=== PATIENT | female | born 1995 | race Caucasian/White ===

== ENCOUNTER → 2021-04-21 | Outpatient (REF) | payer OTHER | LOC: M LAB REF 16:12 | PROVIDERS: ATTEND Surgery | DX: L90.5 Scar conditions and fibrosis of skin (principal) ==

== ENCOUNTER → 2021-08-23 | Outpatient (REF) | payer OTHER ==
[2021-08-23 11:53] LABS: APPEARANCE, URINE HAZY (CLEAR); BACTERIA, URINE AUTO NEGATIVE (NEGATIVE); BILIRUBIN, URINE AUTO NEGATIVE (NEGATIVE); BLOOD, URINE BLOOD NEGATIVE (NEGATIVE); CALCIUM OXALATE CRYSTALS SMALL; COLOR, URINE YELLOW (YELLOW); GLUCOSE, URINE (UA) AUTO NEGATIVE (NEGATIVE); KETONE, URINE AUTO TRACE mg/dL (NEGATIVE); LEUKOCYTE ESTERASE, URINE AUTO NEGATIVE (NEGATIVE); MUCUS, URINE LARGE (NEGATIVE); NITRITE, URINE AUTO NEGATIVE (NEGATIVE); PROTEIN, URINE AUTO NEGATIVE (NEGATIVE); RBC, URINE AUTO 1 /HPF (0-3); SPECIFIC GRAVITY URINE AUTO 1.024 (1.002-1.035); SQUAMOUS EPITHELIAL CELL UR AU 2 /HPF (0-6); UROBILINOGEN, URINE AUTO 0.2 mg/dL (0.0-2.0); WBC, URINE AUTO 2 /HPF (0-3)
[2021-08-23 11:54] LABS: BASO % 0.2 % (0.0-1.0); EOS % 0.5 % (0.0-3.0); HEMATOCRIT 45.1 % (36.0-47.0); LYMPH # 2.7 10^3/uL (1.5-5.0); LYMPH % 32.7 % (24.0-44.0); MEAN CORPUSCULAR HEMOGLOBIN 31.3 pg (27.0-33.0); MEAN CORPUSCULAR HGB CONC 33.3 g/dl (32.0-36.5); MEAN CORPUSCULAR VOLUME 94.2 fl (80.0-96.0); MONO # 0.4 10^3/uL (0.0-0.8); MONO % 4.5 % (2.0-8.0); NEUTROPHILS # 5.1 10^3/uL (1.5-8.5); PLATELET COUNT, AUTOMATED 205 10^3/uL (150-450); RED BLOOD COUNT 4.79 10^6/uL (4.00-5.40); WHITE BLOOD COUNT 8.3 10^3/uL (4.0-10.0)
[2021-08-23 12:15] LABS: HEMOGLOBIN A1c 4.9 %
[2021-08-23 12:28] LABS: ALBUMIN 3.5 GM/DL (3.2-5.2); ALT/SGPT 19 U/L (12-78); BILIRUBIN,TOTAL 0.9 MG/DL (0.2-1.0); BLOOD UREA NITROGEN 10 MG/DL (7-18); CALCIUM LEVEL 9.3 MG/DL (8.5-10.1); CARBON DIOXIDE LEVEL 26 MEQ/L (21-32); CHLORIDE LEVEL 108 MEQ/L (98-107); CHOLESTEROL LEVEL 213 MG/DL (<200); CHOLESTEROL RISK RATIO 4.437 (<5); CREATININE FOR GFR 0.84 MG/DL (0.55-1.30); ESTRADIOL < 19.0 PG/ML; FREE T4 1.07 NG/DL (0.76-1.46); GLOMERULAR FILTRATION RATE > 60.0 (>60); GLUCOSE, FASTING 80 MG/DL (70-100); HDL CHOLESTEROL 48 MG/DL (>40); IMMUNOGLOBULIN G 899 MG/DL (681-1648); LDH LACTATE DEHYDROGENASE 143 U/L (84-246); LDL CHOLESTEROL 135 MG/DL (<100); NON-HDL-C 165 MG/DL; NT-PRO BNP 236 PG/ML (<125); PHOSPHORUS LEVEL 4.3 MG/DL (2.5-4.9); POTASSIUM SERUM 4.2 MEQ/L (3.5-5.1); SODIUM LEVEL 140 MEQ/L (136-145); TOTAL 25(OH) VITAMIN D 25.7 NG/ML (30.0-100.0); TOTAL PROTEIN 7.2 GM/DL (6.4-8.2); TRIGLYCERIDES LEVEL 148 MG/DL (<150); URIC ACID 4.2 MG/DL (2.6-6.0)
== END ==
LOC: M LABDRAWC 11:11
DX: C91.01 Acute lymphoblastic leukemia, in remission (principal)

== ENCOUNTER → 2021-11-08 | Outpatient (REF) | LOC: M EMP 08:25 | PROVIDERS: ATTEND Family Medicine | DX: Z20.828 Contact with and (suspected) exposure to other viral communicable diseases (principal) ==

== ENCOUNTER 2022-01-16 07:44 | Emergency (ER) | payer BC, OTHER ==
[~2022-01-16] VITALS: Ht 162.6 cm; Wt 69.7 kg
[2022-01-16] MEDS ORDERED: ATEN25TA PO (08:01)
[2022-01-16] MEDS ORDERED: ZOLO100T PO (08:01)
[2022-01-16] MEDS ORDERED: BUSP10TA PO (08:01)
[2022-01-16] MEDS ORDERED: HYDR-3363 PO (08:01)
[2022-01-16] MEDS ORDERED: ACETAMINOPHEN 325 MG TAB PO ONE (08:35)
[2022-01-16] MEDS ORDERED: ONDANSETRON 4MG/2ML VIAL IV ONE (08:35)
[2022-01-16] MEDS ORDERED: NS 1,000 ML IV ONE ×2 (08:35→11:55)
[2022-01-16 09:50] LABS: BASO % 0.1 % (0.0-1.0); EOS % 0.1 % (0.0-3.0); HEMATOCRIT 51.8 % (36.0-47.0); HEMOGLOBIN 17.6 g/dl (12.0-15.5); LYMPH # 0.2 10^3/uL (1.5-5.0); MEAN CORPUSCULAR HEMOGLOBIN 31.3 pg (27.0-33.0); MEAN CORPUSCULAR VOLUME 92.2 fl (80.0-96.0); MONO # 0.5 10^3/uL (0.0-0.8); MONO % 6.5 % (2.0-8.0); NEUTROPHILS # 6.2 10^3/uL (1.5-8.5); PLATELET COUNT, AUTOMATED 143 10^3/uL (150-450); RED BLOOD COUNT 5.62 10^6/uL (4.00-5.40); WHITE BLOOD COUNT 6.9 10^3/uL (4.0-10.0)
[2022-01-16 10:00] LABS: INR 1.04
[2022-01-16 10:06] LABS: PARTIAL THROMBOPLASTIN TIME 29.8 SECONDS (25.9-37.0)
[2022-01-16] MEDS ORDERED: ISOVUE-370 76% 100ML VIAL As Ordered ONE (10:11)
[2022-01-16 10:30] LABS: ALBUMIN 4.1 GM/DL (3.2-5.2); BILIRUBIN,DIRECT 0.3 MG/DL (0.0-0.2); BILIRUBIN,TOTAL 1.1 MG/DL (0.2-1.0); TOTAL PROTEIN 7.6 GM/DL (6.4-8.2)
[2022-01-16] MEDS ORDERED: ONDA4TAB6 PO (11:24)
[2022-01-16 13:10] VITALS: BP 114/56
== END 2022-01-16 13:10 | disposition home or self-care (01) ==
LOC: M ED 07:44
DX: R19.5 Other fecal abnormalities (principal); R11.2 Nausea with vomiting, unspecified; R19.7 Diarrhea, unspecified; A08.11 Acute gastroenteropathy due to Norwalk agent; K58.9 Irritable bowel syndrome, unspecified
CPT/HCPCS: 36415; 74177; 80047; 80076; 83690; 84702; 85025; 85610; 85730; 86850; 86900; 86901; 87505; 96361; 96374; 99284; J2405; Q9967